=== PATIENT | male | born 1970 | race African-American/Black ===

== ENCOUNTER 2025-01-31 00:15 | Emergency (ER) | payer MEDICAID, SELFPAY ==
[~2025-01-31] VITALS: Ht 167.6 cm; Wt 79.5 kg
[2025-01-31 00:30] VITALS: TEMP 98.5
[2025-01-31 01:03] LABS: BASO # 0.0 10^3/uL (0.0-0.2); BASO % 0.2 % (0.0-1.0); EOS # 0.1 10^3/uL (0.0-0.5); EOS % 0.9 % (0.0-3.0); LYMPH # 2.0 10^3/uL (1.5-5.0); LYMPH % 15.7 % (24.0-44.0); MONO # 0.7 10^3/uL (0.0-0.8); MONO % 5.7 % (2.0-8.0); NEUTROPHILS # 9.9 10^3/uL (1.5-8.5); NEUTROPHILS % 77.0 % (36.0-66.0); PLATELET COUNT, AUTOMATED 269 10^3/uL (150-450)
[2025-01-31 01:34] LABS: CALCIUM LEVEL 9.3 MG/DL (8.5-10.1); CARBON DIOXIDE LEVEL 27 MMOL/L (20-31); CHLORIDE LEVEL 105 MMOL/L (98-107); CK-MB VALUE MASS < 1.0 NG/ML (<3.6); CREATININE FOR GFR 0.96 MG/DL (0.70-1.30); GLOMERULAR FILTRATION RATE > 90.0 (>56); MAGNESIUM LEVEL 2.0 MG/DL (1.8-2.4); POTASSIUM SERUM 4.7 MMOL/L (3.5-5.1); SODIUM LEVEL 144 MMOL/L (136-145)
[2025-01-31 01:35] LABS: CPK CREATINE PHOSPHOKINASE 113 U/L (46-171)
[2025-01-31] MEDS ORDERED: hydrALAZINE 20 MG/ML 1 ML VIAL IV STA (03:36)
[2025-01-31 07:15] VITALS: BP 201/96; O2SAT 98
== END 2025-01-31 08:15 | disposition home or self-care (01) ==
LOC: M ED 00:15 → EDBD 00:15 → M ED 08:15
DX: R07.89 Other chest pain (principal); I10 Essential (primary) hypertension; Z88.8 Allergy status to other drugs, medicaments and biological substances; Z53.9 Procedure and treatment not carried out, unspecified reason